=== PATIENT | female | born 1950 | race Caucasian/White ===

== ENCOUNTER → 2017-02-25 | Outpatient (CLI) | payer OTHER ==
--- NOTE | 2017-02-25 15:03 | MAMMOGRAPHY REPORT ---
BILATERAL DIGITAL SCREENING MAMMOGRAM TOMOSYNTHESIS WITH CAD: 02/25/2017 CLINICAL HISTORY: Routine screening. Patient has no complaints. TECHNIQUE: Breast tomosynthesis in addition to standard 2D mammography was performed. Current study was also evaluated with a Computer Aided Detection (CAD) system. COMPARISON: Comparison is made to exams dated: 02/20/2016 mammogram, 01/14/2015 mammogram, 01/08/2014 ma mmogram, 01/03/2013 mammogram, 12/29/2011 mammogram, and 12/24/2010 mammogram - [facility] nt. BREAST COMPOSITION: There are scattered areas of fibroglandular density in both breasts. FINDINGS: No suspicious masses, calcifications, or areas of architectural distortion are noted in e ither breast. There has been no significant interval change compared to prior exams. Small circumsc ribed benign-appearing mass in the left central posterior breast is stable compared to prior exams. IMPRESSION: ACR BI-RADS CATEGORY 2: BENIGN There is no mammographic evidence of malignancy. A 1 year screening mammogram is recommended. The p atient will receive written notification of the results. Approximately 10% of breast cancers are not detected with mammography. A negative mammographic repor t should not delay biopsy if a clinically suggestive mass is present. Demi Gordillo M.D. ah/:02/25/2017 12:07:02 Boiler House Supervisor: [address])([place]), [facility] letter sent: Normal 1/2 BI-RADS Code: ACR BI-RADS Category 2: Benign
== END ==
LOC: C.MAMM 10:08
PROVIDERS: ATTEND Obstetrics & Gynecology
DX: Z12.31 Encounter for screening mammogram for malignant neoplasm of breast (principal)

== ENCOUNTER → 2017-10-15 | Outpatient (CLI) | payer OTHER ==
--- NOTE | 2017-10-15 09:20 | DIAGNOSTIC IMAGING REPORT ---
R HIP UNILATERAL MIN 2 VIEWS CLINICAL HISTORY: 67 years-old Female presenting with RIGHT HIP PAIN and low back pain. TECHNIQUE: Frontal and frog-leg lateral views of the right hip were obtained. COMPARISON: None. FINDINGS: Right hip joint congruent. No acute fracture or malalignment. No advanced degenerative change. No radiographic soft tissue abnormality. Visualized portion of the bony pelvis within normal limits. IMPRESSION: No acute osseous injury or advanced degenerative change of the right hip. Electronically signed by: Ketan Nelson M.D. 10/15/2017 9:18 AM Dictated Date/Time: 10/15/2017 9:17 AM
== END | disposition home or self-care (01) ==
LOC: C.RDSM 09:10
PROVIDERS: ATTEND Physician Assistant
DX: M25.551 Pain in right hip (principal)

== ENCOUNTER → 2018-03-07 | Outpatient (CLI) | payer OTHER ==
--- NOTE | 2018-03-08 07:38 | MAMMOGRAPHY REPORT ---
BILATERAL DIGITAL SCREENING MAMMOGRAM TOMOSYNTHESIS WITH CAD: 03/07/2018 CLINICAL HISTORY: Routine screening examination. TECHNIQUE: Breast tomosynthesis in addition to standard 2D mammography was performed. Current study was also evaluated with a Computer Aided Detection (CAD) system. COMPARISON: Comparison is made to exams dated: 02/25/2017 mammogram, 02/20/2016 mammogram, 01/14/2015 [facility], 01/08/2014 mammogram, 01/03/2013 mammogram, and 12/29/2011 mammogram - [facility]. BREAST COMPOSITION: There are scattered areas of fibroglandular density in both breasts. FINDINGS: Circumscribed masses in the 6:00 posterior left breast have decreased in size comparing to the 2016 mammograms, confirming benign fluctuating cysts. There is expected architectural distortion in the 12:00 right breast, likely representing the area of prior excisional biopsy. No new suspicio us mass, architectural distortion or cluster of microcalcifications is seen. IMPRESSION: ACR BI-RADS CATEGORY 1: NEGATIVE There is no mammographic evidence of malignancy. A 1 year screening mammogram is recommended. The pa tient will receive written notification of the results. Approximately 10% of breast cancers are not detected with mammography. A negative mammographic report should not delay biopsy if a clinically suggestive mass is present. Mary Chaudhari M.D. ay/:03/07/2018 12:05:32 Exhibitions And Collections Manager: [address])([place]), [facility] letter sent: Normal 1/2 BI-RADS Code: ACR BI-RADS Category 1: Negative
== END | disposition home or self-care (01) ==
LOC: C.MAMM 10:02
PROVIDERS: ATTEND Obstetrics & Gynecology
DX: Z12.31 Encounter for screening mammogram for malignant neoplasm of breast (principal)